=== PATIENT | male | born 2005 | race Caucasian/White ===

== ENCOUNTER 2025-08-20 14:01 | Emergency (ER) | payer MEDICARE, MEDICAID ==
[~2025-08-20] VITALS: Ht 185.4 cm; Wt 94.3 kg
[2025-08-20 14:08] VITALS: TEMP 97.9
--- NOTE | 2025-08-20 14:36 | RADIOLOGY REPORT ---
EXAM: DI ANKLE, COMPLETE(3VW MIN) CLINICAL INDICATION: ANKLE PAIN,left TECHNIQUE: DI ANKLE, COMPLETE(3VW MIN) Comparison: DI FOOT, COMPLETE (3VW MIN) on DOS: 08/20/25 FINDINGS/IMPRESSION: Minimally displaced distal fibular fracture with soft tissue swelling. Ankle mortise intact.
--- NOTE | 2025-08-20 14:37 | RADIOLOGY REPORT ---
EXAM: DI FOOT, COMPLETE (3VW MIN) CLINICAL INDICATION: FOOT PAIN,left TECHNIQUE: DI FOOT, COMPLETE (3VW MIN) Comparison: DI ANKLE, COMPLETE(3VW MIN) on DOS: 08/20/25 FINDINGS/IMPRESSION: No fracture involving the left foot. Displaced distal fibular fracture.
--- NOTE | 2025-08-20 14:46 | Physician Documentation ---
History of Present Illness ~ Chief Complaint: Ankle pain Stated Complaint: LEG PAIN Time Seen by MD: 14:34 Primary Medical Doctor: N/A HPI 19 old male who presents to the emergency department for evaluation of left ankle and foot injury. Reports he was moving some furniture and boxes and when he stepped on the stairs he rolled his ankle. He has moderate swelling and tenderness to the distal fibula. He is grossly neurologically intact distally with his EHL grossly intact. No prior history of the same. He is unable to bear weight. Tetanus witin 5 years: No Medication Reconciliation Allergies: Coded Allergies: No Known Allergies (Unverified , 12/28/15) Scheduled Ibuprofen* (Motrin*), 1 TAB PO Q8H Past Medical History Past Medical History: No Pertinent History Past Surgical History: no surgical history Alcohol Use: None Drug Use: none Occupation: child Review of Systems All Other Systems at this time: Reviewed and Negative Musculoskeletal: Reports: joint pain, joint swelling Physical Exam Vital Signs: RN Vital Signs have been reviewed: Yes, Temperature: 97.9, Source: Oral, Heart Rate: 80, Respiratory Rate: 18, BP: 157/71, Pulse Oximetry: 97, Weight: 94.300 Oxygen Flow Rate: 0 General Appearance: alert, WD/WN, mild distress Head: normal inspection EENT: PERRL/EOMI Neck: non-tender Ligaments: normal Ankles: limited ROM, pain, soft tissue tenderness, swelling Feet: normal inspection Digit: normal inspection Distal Function: no motor deficit, no sensory deficit, normal capillary refill Skin: normal color Neurologic: oriented x4, licensed architect II-XII nml as tested Psychiatric: normal mood/affect Procedures Splinting Pre-Made Type: Hand-Made Type: orthoglass Splint: Short-leg posterior Pre-Proc Neuro Vasc Exam: normal Post-Proc Neuro Vasc Exam: normal Splint Placed By: director of community life Tolerated Procedure Well?: yes, no complications Procedure Note Short leg posterior splint provided to patient with sterile for minimally displaced left distal fibula fracture. Splint is well fitting. Remains grossly neurologically intact. Aftercare instructions provided along with crutches. Progress Results/Orders Results/Orders Orders - CARLOS PATTERSON MD Ankle, Complete(3vw Min) (08/20/25 14:21) Foot, Complete (3vw Min) (08/20/25 14:21) Completed Orders - OHLFS,CARLOS Osborne MD Ankle, Complete(3vw Min) (08/20/25 14:21) Foot, Complete (3vw Min) (08/20/25 14:21) Vital Signs 08/20/25 08/20/25 14:08 15:43 Temp 97.9 Pulse 80 70 Resp 18 18 B/P (MAP) 157/71 123/69 (87) Pulse Ox 97 99 O2 Flow Rate 0 0 Medical Decision Making Additional information obtaine: N/A Findings Examination history consistent with closed distal fibular fracture requiring immobilization and nonweightbearing with crutch use. Orthopedic follow up recommended. Splint is well fitting with excellent neurovascular status. Patient is safe for discharge with all questions and concerns answered. General Diff Dx:Considerations: Include: Fracture (Minimally displaced fracture of distal fibula), Malunion, Neurovascular injury, Sprain Knee Diff Dx:Considerations: Include: Other (N/A) Ankle Diff Dx:Considerations: Include: Other (N/A) Foot Diff Dx:Considerations: Include: Other (N/A) Toe Diff Dx:Considerations: Include: Other (N/A) Departure Disposition: HOME / SELF CARE / HOMELESS Impression: Primary Impression: Closed left fibular fracture Qualified Codes: S82.832A - Other fracture of upper and lower end of left fibula, initial encounter for closed fracture Condition: Stable Discharge Instructions: Ankle Fracture Additional Instructions: Today in the emergency department your noted to have a fracture to your left distal fibula requiring Orthopedic follow up. You have been placed in a non weight-bearing left short-leg posterior splint and provided crutches. Please take ibuprofen discomfort and return to the emergency department as needed. Thank you for visiting [facility]. Referrals: NO PRIMARY CARE PROVIDER (PCP) 5 days ORTHO CLNIC, [facility] 5 days Please evaluate and treat 19-year-old male with a closed left distal fibula fracture. Thank you emergency department [facility]. Prescriptions Ibuprofen* (Motrin*) 400 Mg Tablet 1 TAB PO Q8H for pain or fever for 10 Days, #30 TAB Prov: TENISHA HAYES PAC 08/20/25 Education Educated: Patient, Family Educated regarding: diagnosis, treatment, prognosis, need for follow up (Please allow herself with a primary care physician for orthopedist follow up.) Signature Scribe Signature: . Attestation: . TENISHA HAYES Aug 20, 2025 14:46 [facility] Aug 22, 2025 15:06
[2025-08-20] MEDS ORDERED: IBUP-1984 PO (14:51)
[2025-08-20 15:43] VITALS: BP 123/69; PULSE 70; RESP 18; O2SAT 99
== END 2025-08-20 15:49 | disposition home or self-care (01) ==
LOC: ER 14:03
DX: S82.832A Other fracture of upper and lower end of left fibula, initial encounter for closed fracture (principal); Z79.899 Other long term (current) drug therapy; X50.1XXA Overexertion from prolonged static or awkward postures, initial encounter; Y93.89 Activity, other specified; Y92.89 Other specified places as the place of occurrence of the external cause; Y99.8 Other external cause status
CPT/HCPCS: 29515; 73610; 73630; 99284; A6449